=== PATIENT | male | born 1995 | race Caucasian/White ===

== ENCOUNTER 2023-06-09 16:25 | Outpatient (OUT) | payer OTHER, SELFPAY ==
--- NOTE | 2023-06-09 16:36 | XR_ITS ---
The [address] [address] Patient Name: MARIEL CASTRO MRN: [id number] date: 1995 Sex: M Assigned Patient Location: [facility] Current Patient Location: Accession/Order Number: [id number] Exam Date: 06/09/2023 16:35 Report Date: 06/10/2023 08:05 At the request of: RICHIE VILLALPANDO Procedure: XR lumbar spine 2-3V EXAMINATION: XR lumbar spine 2-3V HISTORY: chronic midline low back pain, without sciatica M54.50 COMPARISON: No relevant comparison available. FINDINGS: BONES: Straightening of normal lordotic curvature. No significant spondylosis, scoliosis, fracture, or visible bony lesion. DISC SPACES: Slight narrowing of the L5-S1 disc space. PARASPINOUS: Negative. No paraspinous abnormality is seen. OTHER: Negative. XR/XR lumbar spine 2-3V IMPRESSION: 1. Straightening of normal lordotic curvature; positioning versus muscle spasm. 2. Minimal narrowing of L5-S1 disc space; developmental versus disc bulging/degenerative changes. Electronically authenticated by: TUSHAR ZARCO Date: 06/10/2023 08:05
== END 2023-06-09 16:26 | disposition home or self-care (01) ==
LOC: RAD 16:32
PROVIDERS: Family Provider Family Medicine; PCP Family Medicine; Visit Provider Family Medicine
DX: M54.50 Low back pain, unspecified (principal); G89.29 Other chronic pain
CPT/HCPCS: 72100